=== PATIENT | female | born 1945 | race Caucasian/White ===

== ENCOUNTER 2022-01-21 18:17 | Emergency (ER) | payer OTHER, MEDICARE ==
[2022-01-21 18:55] LABS: Absolute Lymphocytes (CBC) 0.4 K/uL (0.7-4.9); Hematocrit 49.3 % (36.0-45.0); Lymphocytes % 2.4 % (15.3-44.8); MCV 87.7 fL (80-100); MPV 11.3 fL (7.6-11.3); RBC Red Blood Cell Count 5.63 M/uL (3.86-4.86)
[2022-01-21 19:01] LABS: Protime INR 1.23
[2022-01-21] MEDS ORDERED: DIGOXIN 0.25 MG/ML AMP ONE (19:46)
[2022-01-21] MEDS ORDERED: VANCOMYCIN 500 MG/VIAL ONE (19:46)
[2022-01-21] MEDS ORDERED: VANCOMYCIN 1 GM/VIAL ONE (19:46)
[2022-01-21] MEDS ORDERED: NA CHLORIDE 0.9% 250 ML ONE (19:47)
[2022-01-21] MEDS ORDERED: NA CHLORIDE 0.9% 1,000 ML ONE (19:47)
[2022-01-21] MEDS ORDERED: METOPROLOL TARTRATE 5 MG/5 ML INJ IV ONE (19:47)
[2022-01-21] MEDS ORDERED: CEFEPIME 1 GM/VIAL ONE (19:47)
[2022-01-21] MEDS ORDERED: NA CHLORIDE 0.9% 100 ML IV ONE (19:47)
[2022-01-21] MEDS ORDERED: ACETAMINOPHEN 650MG/RECT SUPP PR ONE (19:55)
[2022-01-21 20:29] LABS: ALT/SGPT 57 U/L (12-78); AST/SGOT 62 U/L (15-37); Albumin 2.4 g/dL (3.4-5.0); Alkaline Phosphatase 206 U/L (45-117); BUN Blood Urea Nitrogen > 145 mg/dL (7-18); Bicarbonate 17 mmol/L (21-32); Bilirubin Total 2.8 mg/dL (0.2-1.0); Glomerular Filtration Rate 6 ml/min (=/>90); Glucose Level 160 mg/dL (74-106); Protein, Total 8.3 g/dL (6.4-8.2); Sodium Level 131 mmol/L (136-145)
[2022-01-21 20:31] LABS: Creatine Phosphokinase 2354 U/L (26-192); Potassium 5.6 mmol/L (3.5-5.1)
[2022-01-21 20:41] LABS: Urine Bacteria >50 /HPF (<20); Urine Mucus 2+ /HPF (None Seen); Urine RBC >50 /HPF (None Seen); Urine WBC Clump Many /HPF (None Seen)
[2022-01-21] MEDS ORDERED: NA CHLORIDE 0.9% 2,000 ML ONE (20:57)
--- NOTE | 2022-01-21 21:19 | ER ---
Nurse's Notes [facility] Name: Alissa Currie Age: 76 yrs Sex: Female : 1945 Arrival Date: 01/21/2022 Time: 18:23 Bed 4 Private MD: Diagnosis: Pyelonephritis acute;Rhabdomyolysis;Acute kidney failure, unspecified;Hyperkalemia;Dehydration Presentation: 01/21 18:20 Chief complaint: EMS states: Toned out for welfare check, pt found in chair, no air jl7 circulating in the house, pt A\\T\\Ox2 to self and place and not answering and other questions, MONIQUE Andrews [phone] instructed EMS to transport pt to hospital to be evaluated. 18:20 Coronavirus screen: At this time, the client does not indicate any symptoms associated jl7 with coronavirus-19. Ebola Screen: No symptoms or risks identified at this time. Initial Sepsis Screen: Does the patient meet any 2 criteria? Altered Mental Status. HR > 90 bpm. Yes Does the patient have a suspected source of infection? Yes: Skin breakdown/wound. Risk Assessment: Do you want to hurt yourself or someone else? Unable to obtain. Onset of symptoms is unknown. Care prior to arrival: IV initiated. 22 GA, in the left antecubital area. 18:20 Method Of Arrival: EMS: [facility] 7 18:20 Acuity: EFREN 1 jl7 Triage Assessment: 18:20 General: Appears distressed, uncomfortable, obese, unkempt, Behavior is anxious, jl7 restless. Pain: Complains of pain in all over. EENT: Oral mucosa is dry. Neuro: Level of Consciousness is awake, alert, obeys commands, Oriented to person, place. Cardiovascular: Rhythm is irregular. Respiratory: Airway is patent Respiratory effort is even, unlabored, Respiratory pattern is symmetrical, tachypnea. GI: Ileostomy site is clean and dry. Ostomy appliance is intact. Derm: Decubitus located on sacrum approximately 7.6 cm to 20 cm. Historical: - Allergies: 18:20 BEEF CONTAINING PRODUCTS; jl7 18:20 Codeine; jl7 18:20 Erythromycin; jl7 18:20 Milk/dairy products; jl7 18:20 PENICILLINS; jl7 18:20 Tomato (Solanum Lycopersicum); jl7 - PMHx: 18:20 Hypertension; jl7 - Immunization history:: Adult Immunizations unknown. - Social history:: Smoking status: unknown. - Family history:: not pertinent. - Hospitalizations: : No recent hospitalization is reported. - History obtained from: EMS. Screenin:31 Abuse screen: unable to obtain. Nutritional screening: No deficits noted. Tuberculosis tw5 screening: No symptoms or risk factors identified. Fall Risk Secondary diagnosis (15 points). Assessment: 19:33 Respiratory: Respiratory pattern is tachypnea snoring. GI: Colostomy site Ostomy as6 appliance is intact. 19:57 : Urine is cloudy. Derm: Wound noted sacrum Other: dressing applied. as6 Vital Signs: 18:20 BP 201 / 78; Pulse 136; Resp 22; Temp 97.7; Pulse Ox 91% ; jl7 19:29 Pulse 153; Resp 33 S; Temp 99.4(C); Pulse Ox 94% on R/A; Weight 121 kg (M); as6 20:02 BP 142 / 92; Pulse 111; Resp 41 S; Temp 101.4(C); as6 20:35 Pulse 114; Resp 37; Temp 101.6; Pulse Ox 94% on 2 lpm NC; as6 21:05 BP 133 / 60; Pulse 130; Resp 33; Temp 101.4; Pulse Ox 93% on 2 lpm NC; tw5 21:41 BP 141 / 56; Pulse 118; Resp 37 S; Temp 101.0(C); Pulse Ox 90% on 2 lpm NC; as6 22:21 BP 137 / 70; Pulse 105; Resp 32 S; Temp 100.2(C); Pulse Ox 90% on 2 lpm NC; as6 23:08 BP 120 / 66; Pulse 94; Resp 27 S; Temp 99.4(C); Pulse Ox 93% on 2 lpm NC; as6 ED Course: 18:20 Arm band placed on right wrist. jl7 18:23 Patient arrived in ED. iw 18:24 Bryan Galdamez MD is Attending Physician. rn 18:45 Inserted saline lock: 22 gauge in right forearm, using aseptic technique. Blood jl7 collected. 19:00 Initial lab(s) drawn, by me, sent to lab. First set of blood cultures drawn by me. EKG jl7 done, by ED staff, reviewed by Mendoza Sewell MD. 19:00 Thermoregulation: Kalyani blanket applied. jl7 19:03 Jim Wallace, RN is Primary Nurse. as6 19:10 Chest Single View XRAY In Process Unspecified. EDMS 19:16 Attending Physician role handed off by Bryan Galdamez MD kdr 19:16 Mendoza Sewell MD is Attending Physician. kdr 19:20 Triage completed. jl7 19:30 Skelton cath inserted, using sterile technique, 18 Fr., by az, balloon inflated, to as6 gravity drainage, urine specimen collected. returned cloudy urine. Patient tolerated well. 19:56 SARS-COV-2 RT PCR (Document "Date of Onset" if Symptomatic) Sent. as6 19:56 Flu Sent. as6 19:56 Urine Culture Sent. as6 19:56 Urine Microscopic Only Sent. as6 19:56 CMP Sent. as6 19:56 CK Sent. as6 20:29 Notified ED physician of a critical lab result(s). Potassium of 5.7, Creatinine of bb 7.07, CPK 2354 Dr Sewell notified. 20:31 Patient has correct armband on for positive identification. Placed in gown. Bed in low tw5 position. Call light in reach. Side rails up X2. Client placed on continuous cardiac and pulse oximetry monitoring. NIBP monitoring applied. 20:32 Second set of blood cultures drawn [facility] ambulatory technologist stated she stuck the patient x 3 tw5 with no success. Pedi culture obtained by az, lab okayed culture set. 21:15 Zheng Bashir MD is Hospitalizing Provider. kdr 21:23 Abdomen In Process Unspecified. EDMS 21:[address] [facility], spoke with Mode. wm 23:41 Pt was accepted for transfer to [facility] ICU by Dr. Diaz Douglas \\T\\ [id number] per Princess Hernandez. 01/22 00:06 No provider procedures requiring assistance completed. Patient transferred, IV remains tw5 in place. Administered Medications: 01/21 19:51 Drug: NS 0.9% 1000 ml Route: IV; Rate: 1000 ml; Site: left antecubital; as6 19:53 Drug: Digoxin 0.25 mg Route: IVP; Site: left antecubital; as6 19:55 Drug: Lopressor (metoprolol) 5 mg Route: IVP; Site: left antecubital; as6 20:02 Drug: Tylenol Suppository 650 mg Route: NV; as6 20:34 Drug: vancoMYCIN 1.5 grams Route: IVPB; Rate: calculated rate; Site: right forearm; as6 20:34 Drug: Cefepime 1 grams Route: IVPB; Rate: 200 ml/hr; Infused Over: 30 mins; Site: left as6 antecubital; 21:02 Follow up: Response: No adverse reaction; IV Status: Completed infusion tw5 21:05 Drug: NS 0.9% 1000 ml Route: IV; Rate: 1 bolus; Site: left antecubital; tw5 21:05 Drug: NS 0.9% 1000 ml Route: IV; Rate: 300 ml/hr; Site: left antecubital; tw5 22:22 Drug: Metoprolol 2.5 mg Route: IVP; Site: left antecubital; as6 Medication: 20:31 VIS not applicable for this client. tw5 Outcome: 21:18 Decision to Hospitalize by Provider. kdr 22:22 ER care complete, transfer ordered by MD. [facility] 01/22 00:05 Transferred Note: gave report to favio Kathy Condition: stable Instructed on the need for transfer. 00:22 Patient left the ED. tw5 Addendum: 01/24/2022 08:29 Addendum: Culture Results: Other faxed culture report to [facility] icu, room b d 204. Signatures: Dispatcher [employer] EDMS Cheri Clark Kevin, MD MD kdr Albania Ramirez RN RN Gavi Cortes RN RN iw Nieto, Roman, MD MD rn Leal, Jahala, RN RN jl7 Marsh, Wendy wm Wood, Tiffany tw5 Jim Wallace RN RN as6
--- NOTE | 2022-01-21 21:19 | EDPHYS ---
Physician Documentation [facility] Name: Alissa Currie Age: 76 yrs Sex: Female : 1945 Arrival Date: 01/21/2022 Time: 18:23 Bed 4 Private MD: ED Physician Mendoza Sewell HPI: 01/21 18:32 This 76 yrs old Female presents to ER via Unassigned with complaints of AMS, weakness. rn 18:32 The patient presents with decreased responsiveness. Onset: The symptoms/episode rn began/occurred at an unknown time. Possible causes: unknown. Associated signs and symptoms: Pertinent positives: weakness, Pertinent negatives: abdominal pain, chest pain, headache. Current symptoms: In the emergency department the patient's symptoms are unchanged from the initial presentation. It is unknown whether or not the patient has had similar symptoms in the past. The patient has not recently seen a physician. Per EMS, patient sitting in chair for 2 days without getting up or eating/drinking. NO trauma. No fever. Pt reports generalized weakness and cannot tell me why she stayed sitting in chair for so long. . Historical: - Allergies: 18:20 BEEF CONTAINING PRODUCTS; jl7 18:20 Codeine; jl7 18:20 Erythromycin; jl7 18:20 Milk/dairy products; jl7 18:20 PENICILLINS; jl7 18:20 Tomato (Solanum Lycopersicum); jl7 - PMHx: 18:20 Hypertension; jl7 - Immunization history:: Adult Immunizations unknown. - Social history:: Smoking status: unknown. - Family history:: not pertinent. - Hospitalizations: : No recent hospitalization is reported. - History obtained from: EMS. ROS: 18:33 Constitutional: Negative for fever, chills, and weight loss, Eyes: Negative for injury, rn pain, redness, and discharge, Neck: Negative for injury, pain, and swelling, Cardiovascular: Negative for chest pain, palpitations, and edema, Respiratory: Negative for shortness of breath, cough, wheezing, and pleuritic chest pain, Abdomen/GI: Negative for abdominal pain, nausea, vomiting, diarrhea, and constipation, Back: + lower back pain MS/Extremity: Negative for injury and deformity, Skin: Negative for injury, rash, and discoloration, Neuro: Negative for headache, and seizure. Exam: 18:33 Constitutional: Morbidly obese female, disheveled and foul smell Head/Face: rn Normocephalic, atraumatic. ENT: very dry MM Cardiovascular: Regular rate and rhythm. No pulse deficits. Respiratory: No increased work of breathing, no retractions or nasal flaring. Abdomen/GI: ostomy bag with non-bloody stool, non-tender, no distension Skin: Warm, cool extremities, large and deep sacral ulcer that extends into perineum, with foul smell MS/ Extremity: Pulses equal, no cyanosis. Mottled extremities. Neuro: Somnolent but able to wake up and hold conversation. Vital Signs: 18:20 BP 201 / 78; Pulse 136; Resp 22; Temp 97.7; Pulse Ox 91% ; jl7 19:29 Pulse 153; Resp 33 S; Temp 99.4(C); Pulse Ox 94% on R/A; Weight 121 kg (M); as6 20:02 BP 142 / 92; Pulse 111; Resp 41 S; Temp 101.4(C); as6 20:35 Pulse 114; Resp 37; Temp 101.6; Pulse Ox 94% on 2 lpm NC; as6 21:05 BP 133 / 60; Pulse 130; Resp 33; Temp 101.4; Pulse Ox 93% on 2 lpm NC; tw5 21:41 BP 141 / 56; Pulse 118; Resp 37 S; Temp 101.0(C); Pulse Ox 90% on 2 lpm NC; as6 22:21 BP 137 / 70; Pulse 105; Resp 32 S; Temp 100.2(C); Pulse Ox 90% on 2 lpm NC; as6 23:08 BP 120 / 66; Pulse 94; Resp 27 S; Temp 99.4(C); Pulse Ox 93% on 2 lpm NC; as6 MDM: 18:24 Patient medically screened. rn 21:18 Data reviewed: vital signs, nurses notes, lab test result(s), radiologic studies. kdr Counseling: I had a detailed discussion with the patient and/or guardian regarding: the historical points, exam findings, and any diagnostic results supporting the discharge/admit diagnosis, lab results, radiology results, the need for further work-up and treatment in the hospital. 22:57 ED course: Discussed with Dr. Douglas at [place], he will accept the patient to the [facility] ICU. Awaiting call from welding machine operator helper gas. 01/21 18:30 Order name: Blood Culture Adult (2) rn 01/21 18:30 Order name: CBC with Diff; Complete Time: 21:29 rn 01/21 18:30 Order name: CMP; Complete Time: 20:36 rn 01/21 18:30 Order name: Lactate; Complete Time: 19:16 rn 01/21 18:30 Order name: Protime (+inr); Complete Time: 19:16 rn 01/21 18:30 Order name: Ptt, Activated; Complete Time: 19:16 rn 01/21 18:30 Order name: Urine Culture rn 01/21 18:30 Order name: Urine Microscopic Only; Complete Time: 21:13 rn 01/21 18:30 Order name: Flu; Complete Time: 21:13 rn 01/21 18:30 Order name: SARS-COV-2 RT PCR (Document "Date of Onset" if Symptomatic); Complete Time: rn 21:01/21 18:30 Order name: CK; Complete Time: 20:36 rn 01/21 18:33 Order name: Digoxin; Complete Time: 19:33 rn 01/21 21:21 Order name: Manual Differential; Complete Time: 21:29 EDCT 01/21 22:08 Order name: Lactate Sepsis 2 HR Follow-up; Complete Time: 22:52 EDCT 01/21 18:30 Order name: Chest Single View XRAY; Complete Time: 21:50 rn 01/21 18:30 Order name: Accucheck; Complete Time: 20:18 rn 01/21 18:30 Order name: Cardiac monitoring; Complete Time: 19:13 rn 01/21 18:30 Order name: Cath; Complete Time: 19:30 rn 01/21 18:30 Order name: EKG - Nurse/Tech; Complete Time: 19:13 rn 01/21 21:00 Order name: Abdomen ; Complete Time: 21:50 EDCT 01/21 18:30 Order name: IV Saline Lock - Large Bore; Complete Time: 19:13 rn 01/21 18:30 Order name: Labs collected and sent; Complete Time: 19:13 rn 01/21 18:30 Order name: O2 Per Protocol; Complete Time: 19:13 rn 01/21 18:30 Order name: O2 Sat Monitoring; Complete Time: 19:13 rn 01/21 18:30 Order name: Vital Signs; Complete Time: 19:30 rn Administered Medications: 19:51 Drug: NS 0.9% 1000 ml Route: IV; Rate: 1000 ml; Site: left antecubital; as6 19:53 Drug: Digoxin 0.25 mg Route: IVP; Site: left antecubital; as6 19:55 Drug: Lopressor (metoprolol) 5 mg Route: IVP; Site: left antecubital; as6 20:02 Drug: Tylenol Suppository 650 mg Route: GA; as6 20:34 Drug: vancoMYCIN 1.5 grams Route: IVPB; Rate: calculated rate; Site: right forearm; as6 20:34 Drug: Cefepime 1 grams Route: IVPB; Rate: 200 ml/hr; Infused Over: 30 mins; Site: left as6 antecubital; 21:02 Follow up: Response: No adverse reaction; IV Status: Completed infusion tw5 21:05 Drug: NS 0.9% 1000 ml Route: IV; Rate: 1 bolus; Site: left antecubital; tw5 21:05 Drug: NS 0.9% 1000 ml Route: IV; Rate: 300 ml/hr; Site: left antecubital; tw5 22:22 Drug: Metoprolol 2.5 mg Route: IVP; Site: left antecubital; as6 Disposition Summary: 01/21/22 22:22 Transfer Ordered Transfer Location: [facility] kdr Reason: Higher level of care kdr Condition: Serious(01/21/22 22:22) kdr Problem: new(01/21/22 22:22) kdr Symptoms: have improved(01/21/22 22:22) kdr Accepting Physician: radha(01/22/22 00:22) tw5 Diagnosis - Pyelonephritis acute kdr - Rhabdomyolysis(01/21/22 22:22) kdr - Acute kidney failure, unspecified(01/21/22 22:22) kdr - Hyperkalemia(01/21/22 22:22) kdr - Dehydration(01/21/22 22:22) kdr Forms: - Medication Reconciliation Form kdr - SBAR form kdr Signatures: Dispatcher [employer] EDMendoza Monterroso MD MD kdr Bryan Galdamez MD MD rn Leal, Jahala, RN RN jl7 Rosy Rutledge tw5 Jim Wallace, RN RN as6 Lauren Naranjo, PAStarC PA-C sb4 Corrections: (The following items were deleted from the chart) 19:56 18:30 Urine Dipstick-Ancillary ordered. rn as6 21:00 18:36 Abdomen Pelvis W Con+CT.RAD.BRZ ordered. EDMS EDMS 22:21 21:18 Inpatient Admission kdr kdr 22:21 21:18 Zheng Bashir kdr kdr 22:21 21:18 Intensive Care Unit kdr kdr 22:21 21:18 Serious kdr kdr 22:21 21:18 new kdr kdr 22:21 21:18 have improved kdr kdr 22:21 21:18 Standard kdr kdr 22:21 21:18 kdr kdr 22:21 21:18 Rhabdomyolysis kdr kdr 22:21 21:18 Dehydration kdr kdr 22:21 21:18 Acute kidney failure, unspecified kdr kdr 22:21 21:18 Hyperkalemia kdr kdr 01/22 00:22 01/21 22:22 gg kdr tw5
[2022-01-21 21:20] LABS: Platelet Estimate DECR
[2022-01-21 21:21] LABS: Blood Morphology Comment NOT SEEN (NOT SEEN)
--- NOTE | 2022-01-21 21:43 | RAD REPORT ---
EXAM DESCRIPTION: Ophelia Single View01/21/2022 7:08 pm CLINICAL HISTORY: cough COMPARISON: 2017 FINDINGS: The lungs appear clear of acute infiltrate. The heart is normal size IMPRESSION: No acute abnormalities displayed
--- NOTE | 2022-01-21 21:43 | RAD REPORT ---
EXAM DESCRIPTION: CT - Abdomen Pelvis Wo Contrast - 01/21/2022 9:22 pm CLINICAL HISTORY: Abdominal pain /decubitus ulcer COMPARISON: 2017 TECHNIQUE: Computed axial tomography of the abdomen and pelvis was obtained. IV and oral contrast we re not requested. All CT scans are performed using dose optimization technique as appropriate and may include automated exposure control or mA/KV adjustment according to patient size. FINDINGS: The evaluation of solid organs, vessels and bowel is limited secondary to the lack of con trast administration. 4.1 centimeter calculus left renal pelvis. Additional smaller left renal calculi. Mild left hydroneph rosis. Mild dilatation gallbladder Liver, spleen, pancreas, adrenals and right kidney grossly normal. Skelton catheter within the bladder Left lower quadrant ileostomy. Parastomal hernia present Ventral hernia mid pelvis. The neck is midline measuring 12 centimeters. The sac is large and extends midline and to the right. It contains large and small bowel. Smaller ventral hernia lower abdomen Ulceration subcutaneous tissue medial right posterior pelvis. No bony destruction of the underlying s acrum seen. Moderate anterior subluxation L4 on L5. Spondylolysis L4 IMPRESSION: 4.1 centimeter calculus left renal pelvis with mild left hydronephrosis Large ventral hernia within the pelvis containing large and small bowel. No obstruction Mild gallbladder distention
[2022-01-22 01:05] VITALS: BP 120/66; TEMP 99.4; O2SAT 93
--- NOTE | 2022-01-24 12:17 | EKG ---
Test Date: 2022-01-21 Test Time: 19:09:24 Record Changer: MAX MEASUREMENT RESULTS: Intervals: Rate: 146 MI: QRSD: 88 QT: 260 QTc: 405 [place]: P: MI: QRS: 49 T: 180 INTERPRETIVE STATEMENTS: Atrial fibrillation with rapid ventricular response Anteroseptal infarct, age undetermined Abnormal ECG Compared to ECG 06/28/2016 17:20:36 No significant changes Electronically Signed On 01-24-22 12:13:14 DEALER ANALYST by Grant Robertson
== END 2022-01-22 00:22 | disposition short-term general hospital (02) ==
LOC: ER 18:17
DX: N10 Acute pyelonephritis (principal); M62.82 Rhabdomyolysis; E86.0 Dehydration; N17.9 Acute kidney failure, unspecified; E87.5 Hyperkalemia; Z20.822 Contact with and (suspected) exposure to COVID-19; Z88.0 Allergy status to penicillin; Z88.3 Allergy status to other anti-infective agents; Z88.5 Allergy status to narcotic agent; Z91.011 Allergy to milk products; Z91.014 Allergy to mammalian meats; Z91.018 Allergy to other foods
CPT/HCPCS: 93005; 87040 ×2; 87088; 85025; 87086; 36415; 82550; 87205 ×3; 85610; 80162; 83605 ×2; 85730; 87077 ×3; 87186 ×3; 81015; 80053; 87804 ×2; 74176; 71045; 51702; 99291; 99292; U0003; J1160; J3370; J7050; J7030 ×2; J0692